=== PATIENT | male | born 1950 | race Caucasian/White ===

== ENCOUNTER → 2018-12-21 11:27 | Emergency (ER) | payer MEDICARE ==
[~2018-12-21 11:27] MED LIST: NS 0.9% 500 ML* 500 ML IV ONE
[2018-12-21 12:15] LABS: Hematocrit 32 % (42-52); Mean Corpuscular HGB Conc 31 g/dl (31-36); Mean Corpuscular Hemoglobin 26 pg (27-31); Mean Corpuscular Volume 82 fL (80-94); Red Blood Count 3.94 10^6/ul (4.00-5.40); Red Cell Distribution Width 18 % (10.5-15); White Blood Count 7.7 10^3/ul (3.5-10.8)
--- NOTE | 2018-12-21 12:19 | ED ---
HPI Diabetic - HPI Summary HPI Summary: A 68 y/o M brought in by ambulance presents to ED with low blood sugar onset this AM. Pt has a nurse aide who comes in to check his medications, and she called the ambulance this AM when she arrived, because he was found on the floor by his health aide. He was on the floor all night. He was given oral glucose 2x by EMS en route to ED. At bedside, he states feeling fine. He takes insulin, which he says he took last night. Denies recent illness. Denies cough, fever, CP, abd pain, dysuria. He can ambulate for short periods of time, has mild pedal edema and intermittent episodes of back pain per baseline. He sees a kidney specialist, and his PCP is Dr. Goss. He says he ate 2 eggs and toast for dinner. - History Of Current Complaint Chief Complaint: EDGeneral Time Seen by Provider: 12/21/18 11:40 Hx Obtained From: Patient Onset/Duration: Sudden Onset, Lasting Hours, Resolved Timing: Hours - all night Severity Initially: Severe Severity Currently: Mild Alleviating: EMS Treatment, Food Associated Signs & Symptoms: Negative - Allergies/Home Medications Allergies/Adverse Reactions: Allergies Allergy/AdvReac Type Severity Reaction Status Date / Time No Known Allergies Allergy Verified 12/21/18 11:45 PMH/Surg Hx/FS Hx/Imm Hx Previously Healthy: No Endocrine/Hematology History: Reports: Hx Diabetes, Hx Thyroid Disease Cardiovascular History: Reports: Hx Hypertension Denies: Hx Pacemaker/ICD History: Reports: Hx Chronic Renal Failure, Hx Renal Disease Sensory History: Denies: Hx Hearing Aid Neurological History: Reports: Hx Developmental Delay - unsure of pt's intellectual abilities, appears limited, Other Neuro Impairments/Disorders - parkinsons Psychiatric History: Denies: Hx Panic Disorder - Immunization History Date of Tetanus Vaccine: unk Infectious Disease History: No Infectious Disease History: Denies: Traveled Outside the [place] in Last 30 Days - Family History Known Family History: Positive: Diabetes Negative: Cardiac Disease, Hypertension - Social History Occupation: Retired Lives: Alone Alcohol Use: None Hx Substance Use: No Substance Use Type: Reports: None Hx Tobacco Use: No Smoking Status (MU): Never Smoked Tobacco Review of Systems Negative: Fever, Chills Negative: Erythema Negative: Sore Throat Positive: Palpitations - rapid HR. Negative: Chest Pain Positive: Cough. Negative: Shortness Of Breath Negative: Abdominal Pain, Vomiting, Nausea Negative: dysuria, hematuria Negative: Myalgia, Edema Negative: Rash Neurological: Other - pos: lightheadedness. neg: dizziness Negative: Weakness All Other Systems Reviewed And Are Negative: Yes Physical Exam - Summary Physical Exam Summary: Constitutional: Well-developed, Well-nourished, Alert. (-) Distressed Skin: Warm, Dry HENT: Normocephalic; Atraumatic Eyes: Conjunctiva normal Neck: Musculoskeletal ROM normal neck. (-) JVD, (-) Stridor, (-) Tracheal deviation Cardio: Rhythm regular, rate normal, Heart sounds normal; Intact distal pulses; The pedal pulses are 2+ and symmetric. Radial pulses are 2+ and symmetric. (-) Murmur Pulmonary/Chest wall: Effort normal. (-) Respiratory distress, (-) Wheezes, (-) Rales Abd: Soft, (-) epigastric tenderness, (-) Distension, (-) Guarding, (-) Rebound Musculoskeletal: (-) Edema Lymph: (-) Cervical adenopathy Neuro: Alert, Oriented x3 Psych: Mood and affect Normal Triage Information Reviewed: Yes Vital Signs On Initial Exam: Initial Vitals Temp Pulse Resp BP Pulse Ox 96.7 F 90 20 145/104 93 12/21/18 11:45 12/21/18 11:45 12/21/18 11:45 12/21/18 11:45 12/21/18 11:45 Vital Signs Reviewed: Yes Diagnostics - Vital Signs Vital Signs Temp Pulse Resp BP Pulse Ox 12/21/18 11:45 96.7 F 90 20 145/104 93 - Laboratory Lab Results: Lab Results 12/21/18 12/21/18 Range/Units 11:51 12:03 WBC 7.7 (3.5-10.8) 10^3/ul RBC 3.94 L (4.00-5.40) 10^6/ul Hgb 10.0 L (14.0-18.0) g/dl Hct 32 L (42-52) % MCV 82 (80-94) fL MCH 26 L (27-31) pg MCHC 31 (31-36) g/dl RDW 18 H (10.5-15) % Plt Count Pending MPV Pending Neut % (Auto) Pending Lymph % (Auto) Pending [facility] [facility] % (Auto) Pending Eos % (Auto) Pending Baso % (Auto) Pending Absolute Neuts (auto) Pending Absolute Lymphs (auto) Pending Absolute Monos (auto) Pending Absolute Eos (auto) Pending Absolute Basos (auto) Pending Absolute Nucleated RBC Pending Nucleated RBC % Pending POC Glucose (mg/dL) 68 L (70-100) mg/dL Result Diagrams: 12/21/18 12:03 12/21/18 12:03 Lab Statement: Any lab studies that have been ordered have been reviewed, and results considered in the medical decision making process. - EKG 1209 Cardiac Rate: NL - 88 bpm EKG Rhythm: Sinus Rhythm Summary of EKG Findings: No STEMI Re-Evaluation - Re-Evaluation first re-eval Re-Evaluation Time: 16:04 Change: Improved Comment: Updated patient on his discharge information. Diabetic Course/Dx - Course Course Of Treatment: Pt is a 68 y/o M brought in by ambulance presenting with low blood sugar onset this AM. His nursing clinical director arrived this AM and found him on the floor. He was on the floor all night. He was given oral glucose 2x by EMS en route to ED. At bedside, he states feeling fine. He takes insulin, which he says he took last night. Denies recent illness. Denies cough, fever, CP, abd pain, dysuria. Critical lab values: troponin: 0.05. EKG is NSR at 88bpm, no STEMI. Troponin trended to be stable. No chest pain, do not suspect acute coronary symptom. Patient will be discharged home with follow up from PCP in 2- 3 days. The patient is agreeable with this plan. Dx hypoglycemia. - Diagnoses Provider Diagnoses: Hypoglycemia Discharge - Sign-Out/Discharge Documenting (check all that apply): Patient Departure - D/C Patient Received Moderate/Deep Sedation with Procedure: No - Discharge Plan Condition: Stable Disposition: HOME Patient Education Materials: Hypoglycemia in a Person with Diabetes (ED), What to Do if Your Blood Sugar is Low (ED) Referrals: Eleno Hairston MD [Primary Care Provider] - 2 Days Additional Instructions: Be sure that you are eating around that time that you take your insulin. If you do not feel an appetite or will not be eating, do not take your insulin. Follow up with your primary care physician in 2-3 days. Return to the emergency department with any new or worsening symptoms. - Attestation Statements Document Initiated by Scribe: Yes Documenting Scribe: Chaparro Gaines Provider For Whom Scribe is Documenting (Include Credential): Dr. Marco A Mata MD Scribe Attestation: I, Chaparro Gaines, scribed for Dr. Marco A Mata MD on 12/21/18 at 1606. Status of Scribe Document: Ready
[2018-12-21 12:28] LABS: Albumin 3.8 g/dL (3.2-5.2); Albumin/Globulin Ratio 1.1 (1-3); BUN/Creatinine Ratio 21.1 (8-20); Calcium 8.5 mg/dL (8.6-10.3); EGFR African American 21.2 (>60); EGFR Non-African American 17.5 (>60); Globulin 3.4 g/dL (2-4); Potassium 4.8 mmol/L (3.5-5.0); Total Bilirubin 0.5 mg/dL (0.2-1.0); Total Protein 7.2 g/dL (6.4-8.9)
[2018-12-21 12:33] LABS: Troponin I 0.05 ng/mL (<0.04)
[2018-12-21 12:37] LABS: ABS Basophils 0.1 10^3/ul (0-0.2); ABS Eosinophils 0 10^3/ul (0-0.6); ABS Lymphocytes 0.3 10^3/ul (1.0-4.8); ABS Monocytes 0.2 10^3/ul (0-0.8); ABS Nucleated RBC 0 10^3/ul; Eosinophil % 0 %; Lymphocyte % 4.4 %; Mean Platelet Volume 8.8 fL (7.4-10.4); Nucleated Red Blood Cells % 0; Platelet Count 89 10^3/ul (150-450)
[2018-12-21 16:24] VITALS: BP 153/100
== END | disposition home or self-care (01) ==
LOC: ED 11:27
DX: E11.649 Type 2 diabetes mellitus with hypoglycemia without coma (principal); Z79.4 Long term (current) use of insulin; R00.2 Palpitations; R05 Cough
CPT/HCPCS: 36415; 80053; 82550; 83605; 84484; 85025; 85060; 93005; 96360; 99283